=== PATIENT | female | born 1945 | race Caucasian/White ===

== ENCOUNTER 2023-08-15 09:25 | Outpatient (CLI) | payer MEDICARE, SELFPAY | END 2023-08-15 09:26 | disposition home or self-care (01) | LOC: NFLDREF 08-21 09:31 | PROVIDERS: PCP Family Medicine; Referring Provider Family Medicine; Visit Provider Physician Assistant | DX: R30.0 Dysuria (principal); N39.0 Urinary tract infection, site not specified; N30.01 Acute cystitis with hematuria | CPT/HCPCS: 87086 ==